=== PATIENT | female | born 1960 | race Caucasian/White ===

== ENCOUNTER 2016-12-18 16:08 | Inpatient (IN) | payer MEDICARE, MEDICAID ==
[2016-12-18 18:17] VITALS: BMI 35.7
[2016-12-18] MEDS ORDERED: Ondansetron ODT 4 MG TAB PO PRN (19:21)
[2016-12-18] MEDS ORDERED: Bisacodyl 10 MG SUPP PR PRN (19:21)
[2016-12-18] MEDS ORDERED: HumaLOG 300 UNITS/3 ML VIAL SC PRN (19:21)
[2016-12-18] MEDS ORDERED: Lacri-Lube Opth Oint 3.5 GM TUBE EA EYE PRN (19:21)
[2016-12-18] MEDS ORDERED: Mag-Al Plus 1200 MG/1200 MG/120 MG/30 ML UDCUP PO PRN (19:21)
[2016-12-18] MEDS ORDERED: Enoxaparin Sodium 30 MG/0.3 ML SYRINGE SC SCH (21:00)
[2016-12-18] MEDS: risperiDONE 0.5 MG TAB PO PRN (21:08)
[2016-12-18] MEDS: clonazePAM 0.5 MG TAB PO PRN (21:08)
[2016-12-18] MEDS: Polyethylene Glycol 3350 17 GM Packet PO SCH (21:09)
[2016-12-18] MEDS: Saccharomyces boulardii 250 MG CAP PO SCH (21:09)
[2016-12-18] MEDS: Melatonin 3 MG TAB PO SCH (21:10)
[2016-12-18] MEDS: HYDROcodone/Acetaminophen 10/325 mg Tablet PO PRN (21:10)
[2016-12-18] MEDS: traZODone HCl 50 MG TAB PO SCH (21:11)
[2016-12-18] MEDS: Ascorbic Acid 500 mg Chewable Tablet PO SCH (21:12)
[2016-12-18] MEDS: Furosemide 20 MG TAB PO SCH (21:12)
[2016-12-18] MEDS: MICONAZOLE NITRATE TOP SCH (21:15)
[2016-12-18] MEDS: Levemir Flexpen 100 UNITS/ML PEN SC SCH (21:16)
[2016-12-18] MEDS: Docusate Sodium 100 MG/10 ML UDCUP PO SCH (22:13)
[2016-12-18 23:52] LABS: Bilirubin Negative (Negative); Clarity Hazy (Clear); Glucose, Urine (Dipstick) Negative (Negative); Leukocyte Small (Negative); Nitrite Negative (Negative); Protein, Urine (Dipstick) 30 mg/dL (Neg-Trace); Specific Gravity, Urine 1.015 (1.005-1.030); Urobilinogen 0.2 mg/dL (0.2-1.0); pH, Urine 5.5 (5.0-9.0)
[2016-12-18 23:53] LABS: Blood, Urine Trace (Negative)
[2016-12-19 00:12] LABS: Bacteria/HPF 1+ HPF (None Seen); Yeast-All Forms 1+ HPF (None Seen)
[2016-12-19 00:13] LABS: Crystals/HPF RARE CA OXALATE HPF (Negative); Hyaline Casts/LPF 0-3 HYALINE CAST LPF (0-3 Hyaline); Other Casts/LPF 0-3 FINELY GRAN LPF (0-3 Hyaline)
[2016-12-19] MEDS: HYDROcodone/Acetaminophen 10/325 mg Tablet PO PRN ×4 (04:49→21:02)
[2016-12-19] MEDS: clonazePAM 0.5 MG TAB PO PRN ×3 (07:30→23:36)
[2016-12-19] MEDS: Ascorbic Acid 500 mg Chewable Tablet PO SCH ×2 (08:41→20:44)
[2016-12-19] MEDS: Saccharomyces boulardii 250 MG CAP PO SCH ×2 (08:41→20:46)
[2016-12-19] MEDS: Ferrous Sulfate 325 MG TAB PO SCH ×2 (08:41→16:07)
[2016-12-19] MEDS: Senokot 8.6 MG TAB PO SCH (08:41)
[2016-12-19] MEDS: Potassium Chloride 10 MEQ TAB PO SCH (08:42)
[2016-12-19] MEDS: Furosemide 20 MG TAB PO SCH ×2 (08:42→20:45)
[2016-12-19] MEDS: Levemir Flexpen 100 UNITS/ML PEN SC SCH ×2 (08:43→20:47)
[2016-12-19] MEDS: Docusate Sodium 100 MG/10 ML UDCUP PO SCH ×2 (08:43→20:48)
[2016-12-19] MEDS: MICONAZOLE NITRATE TOP SCH ×2 (08:58→20:47)
[2016-12-19] MEDS: Polyethylene Glycol 3350 17 GM Packet PO SCH ×2 (09:00→20:43)
[2016-12-19] MEDS ORDERED: Dextrose 5% in Water 1,000 ML IV PRN (16:16)
[2016-12-19] MEDS ORDERED: Dextrose 50% Abboject 50 ML SYRINGE IVP PRN (16:16)
[2016-12-19] MEDS: traZODone HCl 50 MG TAB PO SCH (20:44)
[2016-12-19] MEDS: Melatonin 3 MG TAB PO SCH (20:45)
[2016-12-19] MEDS: risperiDONE 0.5 MG TAB PO PRN (21:02)
[2016-12-19] MEDS: Cyclobenzaprine 10 MG TAB PO PRN (21:02)
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
[2016-12-20] MEDS: HYDROcodone/Acetaminophen 10/325 mg Tablet PO PRN ×4 (02:19→19:52)
[2016-12-20] MEDS: clonazePAM 0.5 MG TAB PO PRN ×3 (08:43→21:41)
[2016-12-20] MEDS: Polyethylene Glycol 3350 17 GM Packet PO SCH ×2 (08:45→21:32)
[2016-12-20] MEDS: MICONAZOLE NITRATE TOP SCH (08:45)
[2016-12-20] MEDS: Saccharomyces boulardii 250 MG CAP PO SCH ×2 (08:48→21:29)
[2016-12-20] MEDS: Furosemide 20 MG TAB PO SCH ×2 (08:48→21:30)
[2016-12-20] MEDS: Senokot 8.6 MG TAB PO SCH (08:48)
[2016-12-20] MEDS: Ferrous Sulfate 325 MG TAB PO SCH ×2 (08:48→17:14)
[2016-12-20] MEDS: Ascorbic Acid 500 mg Chewable Tablet PO SCH ×2 (08:48→21:30)
[2016-12-20] MEDS: Levemir Flexpen 100 UNITS/ML PEN SC SCH ×2 (08:48→21:55)
[2016-12-20] MEDS: Potassium Chloride 10 MEQ TAB PO SCH (08:48)
[2016-12-20] MEDS: Docusate Sodium 100 MG/10 ML UDCUP PO SCH ×2 (08:49→21:40)
[2016-12-20] MEDS: Cyclobenzaprine 10 MG TAB PO PRN (13:22)
[2016-12-20] MEDS: traZODone HCl 50 MG TAB PO SCH (21:28)
[2016-12-20] MEDS: Melatonin 3 MG TAB PO SCH (21:30)
[2016-12-20] MEDS: Nystatin Powder 15 GM BOT TOP SCH (22:01)
[2016-12-21] MEDS: HYDROcodone/Acetaminophen 10/325 mg Tablet PO PRN ×3 (06:04→14:05)
[2016-12-21] MEDS: Ascorbic Acid 500 mg Chewable Tablet PO SCH ×2 (08:08→21:15)
[2016-12-21] MEDS: Furosemide 20 MG TAB PO SCH ×2 (08:08→21:16)
[2016-12-21] MEDS: Ferrous Sulfate 325 MG TAB PO SCH ×2 (08:08→17:24)
[2016-12-21] MEDS: Levemir Flexpen 100 UNITS/ML PEN SC SCH ×2 (08:10→21:11)
[2016-12-21] MEDS: Nystatin Powder 15 GM BOT TOP SCH ×2 (08:11→21:29)
[2016-12-21] MEDS: Polyethylene Glycol 3350 17 GM Packet PO SCH ×2 (08:11→21:17)
[2016-12-21] MEDS: Saccharomyces boulardii 250 MG CAP PO SCH ×2 (08:12→21:16)
[2016-12-21] MEDS: Potassium Chloride 10 MEQ TAB PO SCH (08:12)
[2016-12-21] MEDS: clonazePAM 0.5 MG TAB PO PRN ×3 (08:12→21:26)
[2016-12-21] MEDS: Senokot 8.6 MG TAB PO SCH (08:12)
[2016-12-21] MEDS: Docusate Sodium 100 MG/10 ML UDCUP PO SCH ×2 (08:18→21:30)
[2016-12-21] MEDS: Ibuprofen 100 MG/5 ML UDCUP PO PRN (19:27)
[2016-12-21] MEDS: Cyclobenzaprine 10 MG TAB PO PRN (19:28)
[2016-12-21] MEDS: traZODone HCl 50 MG TAB PO SCH (21:14)
[2016-12-21] MEDS: Melatonin 3 MG TAB PO SCH (21:16)
[2016-12-22] MEDS: HYDROcodone/Acetaminophen 10/325 mg Tablet PO PRN ×3 (00:29→20:09)
[2016-12-22] MEDS: Polyethylene Glycol 3350 17 GM Packet PO SCH ×2 (09:22→21:58)
[2016-12-22] MEDS: Ascorbic Acid 500 mg Chewable Tablet PO SCH ×2 (09:23→21:31)
[2016-12-22] MEDS: Saccharomyces boulardii 250 MG CAP PO SCH ×2 (09:23→21:29)
[2016-12-22] MEDS: Senokot 8.6 MG TAB PO SCH (09:23)
[2016-12-22] MEDS: Furosemide 20 MG TAB PO SCH ×2 (09:23→21:32)
[2016-12-22] MEDS: Ferrous Sulfate 325 MG TAB PO SCH ×2 (09:23→17:27)
[2016-12-22] MEDS: Cyclobenzaprine 10 MG TAB PO PRN ×2 (09:23→18:24)
[2016-12-22] MEDS: Docusate Sodium 100 MG/10 ML UDCUP PO SCH ×2 (09:24→21:31)
[2016-12-22] MEDS: Potassium Chloride 10 MEQ TAB PO SCH (09:24)
[2016-12-22] MEDS: Levemir Flexpen 100 UNITS/ML PEN SC SCH ×2 (09:25→21:39)
[2016-12-22] MEDS: Nystatin Powder 15 GM BOT TOP SCH ×2 (09:26→21:39)
[2016-12-22] MEDS: Ibuprofen 100 MG/5 ML UDCUP PO PRN ×2 (09:26→18:25)
[2016-12-22] MEDS: clonazePAM 0.5 MG TAB PO PRN ×2 (09:57→21:44)
[2016-12-22] MEDS: hydrOXYzine 25 MG TAB PO PRN (20:11)
[2016-12-22] MEDS: traZODone HCl 50 MG TAB PO SCH (21:30)
[2016-12-22] MEDS: Melatonin 3 MG TAB PO SCH (21:31)
[2016-12-23] MEDS: Ibuprofen 100 MG/5 ML UDCUP PO PRN ×2 (05:32→13:34)
[2016-12-23] MEDS: Cyclobenzaprine 10 MG TAB PO PRN ×3 (05:33→21:08)
[2016-12-23] MEDS: Ascorbic Acid 500 mg Chewable Tablet PO SCH ×2 (09:23→21:07)
[2016-12-23] MEDS: Polyethylene Glycol 3350 17 GM Packet PO SCH ×2 (09:23→21:11)
[2016-12-23] MEDS: Potassium Chloride 10 MEQ TAB PO SCH (09:23)
[2016-12-23] MEDS: Docusate Sodium 100 MG/10 ML UDCUP PO SCH ×2 (09:24→21:11)
[2016-12-23] MEDS: Senokot 8.6 MG TAB PO SCH (09:24)
[2016-12-23] MEDS: Furosemide 20 MG TAB PO SCH ×2 (09:24→21:09)
[2016-12-23] MEDS: Ferrous Sulfate 325 MG TAB PO SCH ×2 (09:24→17:27)
[2016-12-23] MEDS: Saccharomyces boulardii 250 MG CAP PO SCH ×2 (09:24→21:07)
[2016-12-23] MEDS: Levemir Flexpen 100 UNITS/ML PEN SC SCH ×2 (09:26→21:12)
[2016-12-23] MEDS: Nystatin Powder 15 GM BOT TOP SCH ×2 (09:27→21:11)
[2016-12-23] MEDS: clonazePAM 0.5 MG TAB PO PRN ×2 (10:04→21:07)
[2016-12-23] MEDS: HYDROcodone/Acetaminophen 10/325 mg Tablet PO PRN ×2 (12:45→21:08)
[2016-12-23] MEDS: Melatonin 3 MG TAB PO SCH (21:07)
[2016-12-23] MEDS: traZODone HCl 50 MG TAB PO SCH (21:09)
[2016-12-24] MEDS: clonazePAM 0.5 MG TAB PO PRN ×3 (09:05→21:35)
[2016-12-24] MEDS: Cyclobenzaprine 10 MG TAB PO PRN ×2 (09:06→21:35)
[2016-12-24] MEDS: HYDROcodone/Acetaminophen 10/325 mg Tablet PO PRN ×3 (09:06→21:35)
[2016-12-24] MEDS: Ascorbic Acid 500 mg Chewable Tablet PO SCH ×2 (09:08→17:14)
[2016-12-24] MEDS: Polyethylene Glycol 3350 17 GM Packet PO SCH ×2 (09:08→21:24)
[2016-12-24] MEDS: Furosemide 20 MG TAB PO SCH ×2 (09:08→21:23)
[2016-12-24] MEDS: Potassium Chloride 10 MEQ TAB PO SCH (09:08)
[2016-12-24] MEDS: Ferrous Sulfate 325 MG TAB PO SCH ×2 (09:08→17:13)
[2016-12-24] MEDS: Saccharomyces boulardii 250 MG CAP PO SCH ×2 (09:08→21:22)
[2016-12-24] MEDS: Docusate Sodium 100 MG/10 ML UDCUP PO SCH ×2 (09:09→21:23)
[2016-12-24] MEDS: Nystatin Powder 15 GM BOT TOP SCH ×2 (09:09→21:31)
[2016-12-24] MEDS: Levemir Flexpen 100 UNITS/ML PEN SC SCH ×2 (09:09→21:39)
[2016-12-24] MEDS: Senokot 8.6 MG TAB PO SCH (09:10)
[2016-12-24] MEDS: traZODone HCl 50 MG TAB PO SCH (21:22)
[2016-12-24] MEDS: Melatonin 3 MG TAB PO SCH (21:23)
[2016-12-24] MEDS: risperiDONE 0.5 MG TAB PO PRN (21:35)
[2016-12-24] MEDS: Ibuprofen 100 MG/5 ML UDCUP PO PRN (22:59)
[2016-12-25] MEDS: HYDROcodone/Acetaminophen 10/325 mg Tablet PO PRN ×4 (03:30→23:31)
[2016-12-25] MEDS: Ferrous Sulfate 325 MG TAB PO SCH ×2 (08:52→17:19)
[2016-12-25] MEDS: Furosemide 20 MG TAB PO SCH ×2 (08:52→20:20)
[2016-12-25] MEDS: Potassium Chloride 10 MEQ TAB PO SCH (08:52)
[2016-12-25] MEDS: Ascorbic Acid 500 mg Chewable Tablet PO SCH ×2 (08:52→17:18)
[2016-12-25] MEDS: Senokot 8.6 MG TAB PO SCH (08:52)
[2016-12-25] MEDS: Saccharomyces boulardii 250 MG CAP PO SCH ×2 (08:52→20:21)
[2016-12-25] MEDS: Polyethylene Glycol 3350 17 GM Packet PO SCH ×2 (08:53→20:21)
[2016-12-25] MEDS: Nystatin Powder 15 GM BOT TOP SCH ×2 (08:53→20:21)
[2016-12-25] MEDS: Levemir Flexpen 100 UNITS/ML PEN SC SCH ×2 (08:54→20:20)
[2016-12-25] MEDS: Docusate Sodium 100 MG/10 ML UDCUP PO SCH ×2 (08:54→20:19)
[2016-12-25] MEDS: Cyclobenzaprine 10 MG TAB PO PRN ×2 (09:25→20:22)
[2016-12-25] MEDS: clonazePAM 0.5 MG TAB PO PRN ×3 (09:25→20:21)
[2016-12-25] MEDS: Melatonin 3 MG TAB PO SCH (20:21)
[2016-12-25] MEDS: traZODone HCl 50 MG TAB PO SCH (20:21)
[2016-12-25] MEDS: risperiDONE 0.5 MG TAB PO PRN (20:22)
[2016-12-25] MEDS: Ibuprofen 100 MG/5 ML UDCUP PO PRN (23:30)
[2016-12-26] MEDS: Furosemide 20 MG TAB PO SCH ×2 (08:59→21:10)
[2016-12-26] MEDS: Saccharomyces boulardii 250 MG CAP PO SCH ×2 (08:59→21:10)
[2016-12-26] MEDS: Ascorbic Acid 500 mg Chewable Tablet PO SCH ×2 (08:59→17:55)
[2016-12-26] MEDS: Potassium Chloride 10 MEQ TAB PO SCH (08:59)
[2016-12-26] MEDS: Senokot 8.6 MG TAB PO SCH (08:59)
[2016-12-26] MEDS: Ferrous Sulfate 325 MG TAB PO SCH ×2 (09:00→17:55)
[2016-12-26] MEDS: HYDROcodone/Acetaminophen 10/325 mg Tablet PO PRN ×3 (09:00→17:56)
[2016-12-26] MEDS: Nystatin Powder 15 GM BOT TOP SCH ×2 (09:01→21:11)
[2016-12-26] MEDS: Docusate Sodium 100 MG/10 ML UDCUP PO SCH ×2 (09:02→21:13)
[2016-12-26] MEDS: Levemir Flexpen 100 UNITS/ML PEN SC SCH ×2 (09:05→21:11)
[2016-12-26] MEDS: Polyethylene Glycol 3350 17 GM Packet PO SCH ×2 (09:05→21:11)
[2016-12-26] MEDS: Melatonin 3 MG TAB PO SCH (21:10)
[2016-12-26] MEDS: traZODone HCl 50 MG TAB PO SCH (21:10)
[2016-12-27] MEDS: HYDROcodone/Acetaminophen 10/325 mg Tablet PO PRN ×3 (00:44→21:22)
[2016-12-27] MEDS: Cyclobenzaprine 10 MG TAB PO PRN ×2 (01:52→17:31)
[2016-12-27] MEDS: clonazePAM 0.5 MG TAB PO PRN ×3 (01:52→21:03)
[2016-12-27] MEDS: Ascorbic Acid 500 mg Chewable Tablet PO SCH ×2 (09:23→17:30)
[2016-12-27] MEDS: Ferrous Sulfate 325 MG TAB PO SCH ×2 (09:23→17:31)
[2016-12-27] MEDS: Potassium Chloride 10 MEQ TAB PO SCH (09:24)
[2016-12-27] MEDS: Furosemide 20 MG TAB PO SCH ×2 (09:24→21:01)
[2016-12-27] MEDS: Senokot 8.6 MG TAB PO SCH (09:24)
[2016-12-27] MEDS: Polyethylene Glycol 3350 17 GM Packet PO SCH ×2 (09:24→20:59)
[2016-12-27] MEDS: Saccharomyces boulardii 250 MG CAP PO SCH ×2 (09:24→20:59)
[2016-12-27] MEDS: Levemir Flexpen 100 UNITS/ML PEN SC SCH ×2 (09:25→21:01)
[2016-12-27] MEDS: Docusate Sodium 100 MG/10 ML UDCUP PO SCH ×2 (09:26→21:00)
[2016-12-27] MEDS: Nystatin Powder 15 GM BOT TOP SCH ×2 (09:27→21:04)
[2016-12-27] MEDS: Ibuprofen 100 MG/5 ML UDCUP PO PRN (09:32)
[2016-12-27] MEDS ORDERED: Ibuprofen 400 MG TAB PO PRN (16:05)
[2016-12-27] MEDS: Melatonin 3 MG TAB PO SCH (21:01)
[2016-12-27] MEDS: traZODone HCl 50 MG TAB PO SCH (21:01)
[2016-12-27] MEDS: risperiDONE 0.5 MG TAB PO PRN (21:27)
[2016-12-28] MEDS: HYDROcodone/Acetaminophen 10/325 mg Tablet PO PRN ×3 (04:29→21:16)
[2016-12-28] MEDS: Cyclobenzaprine 10 MG TAB PO PRN ×2 (07:39→23:53)
[2016-12-28] MEDS: Ferrous Sulfate 325 MG TAB PO SCH ×2 (07:39→17:46)
[2016-12-28] MEDS: clonazePAM 0.5 MG TAB PO PRN ×2 (07:39→17:46)
[2016-12-28] MEDS: Ascorbic Acid 500 mg Chewable Tablet PO SCH ×2 (07:40→17:46)
[2016-12-28] MEDS: Senokot 8.6 MG TAB PO SCH (08:59)
[2016-12-28] MEDS: Furosemide 20 MG TAB PO SCH ×2 (09:00→21:16)
[2016-12-28] MEDS: Saccharomyces boulardii 250 MG CAP PO SCH ×2 (09:00→21:15)
[2016-12-28] MEDS: Potassium Chloride 10 MEQ TAB PO SCH (09:00)
[2016-12-28] MEDS: Docusate Sodium 100 MG/10 ML UDCUP PO SCH ×2 (09:00→21:14)
[2016-12-28] MEDS: Levemir Flexpen 100 UNITS/ML PEN SC SCH ×2 (09:11→21:35)
[2016-12-28] MEDS: Nystatin Powder 15 GM BOT TOP SCH ×2 (09:12→21:33)
[2016-12-28] MEDS: Polyethylene Glycol 3350 17 GM Packet PO SCH ×2 (09:12→21:15)
[2016-12-28] MEDS ORDERED: Cyclobenzaprine 10 MG TAB PO SCH (12:15)
[2016-12-28] MEDS: traZODone HCl 50 MG TAB PO SCH (21:15)
[2016-12-28] MEDS: Melatonin 3 MG TAB PO SCH (21:16)
[2016-12-28] MEDS: risperiDONE 0.5 MG TAB PO PRN (21:16)
[2016-12-29] MEDS: HYDROcodone/Acetaminophen 10/325 mg Tablet PO PRN ×5 (05:01→23:58)
[2016-12-29] MEDS: Nystatin Powder 15 GM BOT TOP SCH ×2 (09:02→21:47)
[2016-12-29] MEDS: Ascorbic Acid 500 mg Chewable Tablet PO SCH ×2 (09:02→16:53)
[2016-12-29] MEDS: Polyethylene Glycol 3350 17 GM Packet PO SCH ×2 (09:02→19:49)
[2016-12-29] MEDS: Furosemide 20 MG TAB PO SCH ×2 (09:02→19:50)
[2016-12-29] MEDS: Saccharomyces boulardii 250 MG CAP PO SCH ×2 (09:02→19:49)
[2016-12-29] MEDS: Potassium Chloride 10 MEQ TAB PO SCH (09:02)
[2016-12-29] MEDS: Levemir Flexpen 100 UNITS/ML PEN SC SCH ×2 (09:03→21:47)
[2016-12-29] MEDS: Senokot 8.6 MG TAB PO SCH (09:03)
[2016-12-29] MEDS: Ferrous Sulfate 325 MG TAB PO SCH ×2 (09:03→16:53)
[2016-12-29] MEDS: Docusate Sodium 100 MG/10 ML UDCUP PO SCH ×2 (09:03→19:50)
[2016-12-29] MEDS: clonazePAM 0.5 MG TAB PO PRN ×3 (10:58→21:46)
[2016-12-29] MEDS: HumaLOG 300 UNITS/3 ML VIAL SC PRN (11:55)
[2016-12-29] MEDS: traZODone HCl 50 MG TAB PO SCH (19:49)
[2016-12-29] MEDS: Melatonin 3 MG TAB PO SCH (19:50)
[2016-12-29] MEDS: Cyclobenzaprine 10 MG TAB PO PRN (19:51)
[2016-12-29] MEDS: risperiDONE 0.5 MG TAB PO PRN (19:54)
[2016-12-30] MEDS: HYDROcodone/Acetaminophen 10/325 mg Tablet PO PRN ×4 (04:20→20:23)
[2016-12-30] MEDS: clonazePAM 0.5 MG TAB PO PRN ×3 (08:31→20:22)
[2016-12-30] MEDS: Furosemide 20 MG TAB PO SCH ×2 (08:33→20:25)
[2016-12-30] MEDS: Potassium Chloride 10 MEQ TAB PO SCH (08:33)
[2016-12-30] MEDS: Ferrous Sulfate 325 MG TAB PO SCH ×2 (08:33→17:06)
[2016-12-30] MEDS: Senokot 8.6 MG TAB PO SCH (08:33)
[2016-12-30] MEDS: Ascorbic Acid 500 mg Chewable Tablet PO SCH ×2 (08:33→17:06)
[2016-12-30] MEDS: Saccharomyces boulardii 250 MG CAP PO SCH ×2 (08:33→20:24)
[2016-12-30] MEDS: Docusate Sodium 100 MG/10 ML UDCUP PO SCH ×2 (08:34→20:39)
[2016-12-30] MEDS: Levemir Flexpen 100 UNITS/ML PEN SC SCH ×2 (08:34→21:32)
[2016-12-30] MEDS: Nystatin Powder 15 GM BOT TOP SCH ×2 (08:35→20:40)
[2016-12-30] MEDS: Polyethylene Glycol 3350 17 GM Packet PO SCH ×2 (08:36→20:26)
[2016-12-30] MEDS: hydrOXYzine 25 MG TAB PO PRN (11:36)
[2016-12-30] MEDS: Cyclobenzaprine 10 MG TAB PO PRN (20:23)
[2016-12-30] MEDS: traZODone HCl 50 MG TAB PO SCH (20:24)
[2016-12-30] MEDS: Melatonin 3 MG TAB PO SCH (20:25)
[2016-12-30] MEDS: risperiDONE 0.5 MG TAB PO PRN (20:30)
[2016-12-31] MEDS: HYDROcodone/Acetaminophen 10/325 mg Tablet PO PRN ×4 (01:44→15:03)
[2016-12-31] MEDS: Cyclobenzaprine 10 MG TAB PO PRN (04:36)
[2016-12-31] MEDS: Polyethylene Glycol 3350 17 GM Packet PO SCH (09:01)
[2016-12-31] MEDS: Saccharomyces boulardii 250 MG CAP PO SCH (09:02)
[2016-12-31] MEDS: Potassium Chloride 10 MEQ TAB PO SCH (09:02)
[2016-12-31] MEDS: Senokot 8.6 MG TAB PO SCH (09:03)
[2016-12-31] MEDS: Ascorbic Acid 500 mg Chewable Tablet PO SCH (09:03)
[2016-12-31] MEDS: Furosemide 20 MG TAB PO SCH (09:03)
[2016-12-31] MEDS: Ferrous Sulfate 325 MG TAB PO SCH (09:03)
[2016-12-31] MEDS: Levemir Flexpen 100 UNITS/ML PEN SC SCH (09:06)
[2016-12-31] MEDS: Nystatin Powder 15 GM BOT TOP SCH (09:10)
[2016-12-31] MEDS: hydrOXYzine 25 MG TAB PO PRN (10:12)
[2016-12-31] MEDS: clonazePAM 0.5 MG TAB PO PRN ×2 (10:12→15:03)
[2016-12-31 10:46] VITALS: TEMP 97
[2016-12-31] MEDS: HumaLOG 300 UNITS/3 ML VIAL SC PRN (11:55)
[2016-12-31 13:11] VITALS: BP 131/78
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
== END 2016-12-31 15:29 | disposition home health service (06) | DRG 560 ==
LOC: MADMS 17:35
PROVIDERS: ADMIT Family Medicine; ATTEND Family Medicine
DX: S22.089D Unspecified fracture of T11-T12 vertebra, subsequent encounter for fracture with routine healing (principal); D62 Acute posthemorrhagic anemia; G82.20 Paraplegia, unspecified; I10 Essential (primary) hypertension; E11.9 Type 2 diabetes mellitus without complications; R26.9 Unspecified abnormalities of gait and mobility; K21.9 Gastro-esophageal reflux disease without esophagitis; F41.9 Anxiety disorder, unspecified; F32.9 Major depressive disorder, single episode, unspecified; F31.9 Bipolar disorder, unspecified; E78.5 Hyperlipidemia, unspecified; V49.9XXD Car occupant (driver) (passenger) injured in unspecified traffic accident, subsequent encounter; Z66 Do not resuscitate
CPT/HCPCS: 36416; 81003; 81015; 87086; G8978-GP-CN; G8979-GP-CK; J1815; J7620; Q0162

== ENCOUNTER 2017-02-26 14:48 | Outpatient (CLI) | payer MEDICARE, MEDICAID ==
[2017-02-26 15:33] LABS: Bilirubin Negative (Negative); Blood, Urine Trace (Negative); Clarity Cloudy (Clear); Glucose, Urine (Dipstick) Negative (Negative); Leukocyte Moderate (Negative); Nitrite Negative (Negative); Urobilinogen 0.2 mg/dL (0.2-1.0)
[2017-02-26 15:34] LABS: Bacteria/HPF 4+ HPF (None Seen); Squamous Epithelial None Seen HPF (0-3)
[2017-02-26 15:45] LABS: Protein, Urine (Dipstick) Negative (Neg-Trace)
== END 2017-02-26 14:49 | disposition home or self-care (01) ==
LOC: MADLAB 14:48
PROVIDERS: ATTEND General Practice
DX: N31.9 Neuromuscular dysfunction of bladder, unspecified (principal)
CPT/HCPCS: 36415; 81001; 87077; 87086; 87186

== ENCOUNTER 2017-07-02 18:21 | Inpatient (IN) | payer MEDICARE, MEDICAID ==
[2017-07-02] MEDS ORDERED: Baclofen 10 MG TAB PO PRN (21:02)
[2017-07-02] MEDS ORDERED: Bisacodyl 5 MG TAB PO PRN (21:05)
[2017-07-02] MEDS ORDERED: Bisacodyl 10 MG SUPP PR PRN (21:05)
[2017-07-02] MEDS ORDERED: Lacri-Lube Opth Oint 3.5 GM TUBE EA EYE PRN (21:09)
[2017-07-02] MEDS ORDERED: Melatonin 3 MG TAB PO PRN (21:09)
[2017-07-02] MEDS ORDERED: Dextrose 5% in Water 1,000 ML IV PRN (21:11)
[2017-07-02] MEDS ORDERED: Dextrose 50% Abboject 50 ML SYRINGE IVP PRN (21:12)
[2017-07-02] MEDS ORDERED: Bisacodyl 10 MG SUPP PR SCH (22:00)
[2017-07-02] MEDS: Senokot 8.6 MG TAB PO SCH (22:15)
[2017-07-02] MEDS: Polyethylene Glycol 3350 17 GM Packet PO SCH (22:15)
[2017-07-02] MEDS: Albuterol Sulfate 2.5 mg/3 ml Neb NEB SCH (22:16)
[2017-07-02] MEDS: Levemir Flexpen 100 UNITS/ML PEN SC SCH (22:19)
[2017-07-02] MEDS: Vancomycin HCl 1 GM in Sodium Chloride 0.9% 250 ML 250 ML IVPB SCH (23:33)
[2017-07-02] MEDS: Acetaminophen/Codeine 30-300mg Tablet PO PRN (23:34)
[2017-07-03] MEDS: clonazePAM 0.5 MG TAB PO PRN ×2 (01:30→11:10)
[2017-07-03] MEDS: fentaNYL 50 mcg/hour Patch TD SCH (01:30)
[2017-07-03 05:29] LABS: #Basophils 0.1 thou/uL (0.0-0.2); #Eosinphils 0.4 thou/uL (0.0-0.7); #Lymphocytes 2.3 thou/uL (1.20-3.40); #Monocytes 0.6 thou/uL (0.11-0.59); #Neutrophils 4.8 thou/uL (1.40-6.50); %Basophils 0.9 % (0.0-1.0); %Eosinophils 4.8 % (0.0-10.0); %Lymphocytes 27.8 % (21.0-51.0); %Monocytes 7.8 % (0.0-10.0); %Neutrophils 58.7 % (42.0-75.0); Hemoglobin 8.8 g/dL (12.0-16.0); Mean Corpuscular Hemoglobin 29.3 pg (27.0-31.0); Mean Corpuscular Volume 91.5 fl (81.0-99.0); Mean Platelet Volume 5.7 fL (7.4-10.4); Platelet Count 420 thou/uL (130-400); RBC Distribution Width 15.9 % (11.5-14.5); Red Blood Cell (RBC) Count 3.02 mill/uL (4.20-5.40); White Blood Cell (WBC) Count 8.2 thou/uL (4.8-10.8)
[2017-07-03 05:40] LABS: Anion Gap 12 mmol/L (10-20); BUN (Urea Nitrogen) 8 mg/dL (9.8-20.1); Calc. Creatinine Clearance 169 mL/min (70-130); Calcium 10.3 mg/dL (7.8-10.44); Carbon Dioxide 35 mmol/L (22-29); Estimated GFR-MDRD Greater than 90; Glucose 133 mg/dL (70-105)
[2017-07-03 05:44] LABS: Chloride 98 mmol/L (98-107); Potassium 4.2 mmol/L (3.5-5.1); Sodium 141 mmol/L (136-145)
[2017-07-03] MEDS ORDERED: FLU VACC QS2017-18 36 mo. & older 0.5 ML SYRINGE IM ONE (09:00)
[2017-07-03] MEDS: Senokot 8.6 MG TAB PO SCH ×2 (09:09→20:56)
[2017-07-03] MEDS: Enoxaparin Sodium 40 MG/0.4 ML SYRINGE SC SCH (09:09)
[2017-07-03] MEDS: Polyethylene Glycol 3350 17 GM Packet PO SCH ×3 (09:09→21:00)
[2017-07-03] MEDS: Potassium Chloride 10 MEQ TAB PO SCH (09:09)
[2017-07-03] MEDS: Furosemide 20 MG TAB PO SCH (09:09)
[2017-07-03] MEDS: Ferrous Sulfate 325 MG TAB PO SCH ×2 (09:09→17:11)
[2017-07-03] MEDS: Albuterol Sulfate 2.5 mg/3 ml Neb NEB SCH ×2 (09:10→20:53)
[2017-07-03] MEDS: Acetaminophen/Codeine 30-300mg Tablet PO PRN ×2 (11:09→19:19)
[2017-07-03] MEDS: Vancomycin HCl 1 GM in Sodium Chloride 0.9% 250 ML 250 ML IVPB SCH (11:49)
[2017-07-03 11:52] LABS: Vancomycin, Trough 15.6 ug/mL
[2017-07-03] MEDS ORDERED: Triamcinolone 0.1% Cream 15 GM TUBE TOP PRN (13:18)
[2017-07-03] MEDS ORDERED: Fleet Enema 133 ML BOT PR PRN (13:33)
[2017-07-03] MEDS: tiZANidine HCl 4 MG TAB PO SCH ×2 (13:48→19:18)
[2017-07-03] MEDS: Baclofen 10 MG TAB PO SCH ×2 (13:49→19:17)
[2017-07-03] MEDS ORDERED: tiZANidine HCl 4 MG TAB PO SCH (18:00)
[2017-07-03] MEDS ORDERED: Acetaminophen/Codeine 30-300mg Tablet PO PRN (18:51)
[2017-07-03] MEDS: Bisacodyl 10 MG SUPP PR SCH (20:54)
[2017-07-03] MEDS: Levemir Flexpen 100 UNITS/ML PEN SC SCH (20:55)
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
[2017-07-04] MEDS: Vancomycin HCl 1 GM in Sodium Chloride 0.9% 250 ML 250 ML IVPB SCH ×3 (00:04→23:18)
[2017-07-04] MEDS: Baclofen 10 MG TAB PO SCH ×4 (01:32→19:39)
[2017-07-04] MEDS: Acetaminophen/Codeine 30-300mg Tablet PO PRN ×4 (01:33→23:18)
[2017-07-04] MEDS: tiZANidine HCl 4 MG TAB PO SCH ×4 (01:33→19:39)
[2017-07-04] MEDS ORDERED: Bisacodyl 10 MG SUPP PR PRN (06:37)
[2017-07-04] MEDS: Furosemide 20 MG TAB PO SCH (09:13)
[2017-07-04] MEDS: Senokot 8.6 MG TAB PO SCH ×2 (09:15→20:02)
[2017-07-04] MEDS: Albuterol Sulfate 2.5 mg/3 ml Neb NEB SCH ×2 (09:16→19:40)
[2017-07-04] MEDS: Potassium Chloride 10 MEQ TAB PO SCH (09:16)
[2017-07-04] MEDS: Ferrous Sulfate 325 MG TAB PO SCH ×2 (09:16→16:52)
[2017-07-04] MEDS: Enoxaparin Sodium 40 MG/0.4 ML SYRINGE SC SCH (09:17)
[2017-07-04] MEDS: Polyethylene Glycol 3350 17 GM Packet PO SCH ×2 (09:18→20:00)
[2017-07-04] MEDS: Ondansetron ODT 4 MG TAB PO PRN (14:13)
[2017-07-04] MEDS: HumaLOG 300 UNITS/3 ML VIAL SC PRN (18:00)
[2017-07-04] MEDS: clonazePAM 0.5 MG TAB PO PRN (18:08)
[2017-07-04] MEDS: Levemir Flexpen 100 UNITS/ML PEN SC SCH (20:01)
[2017-07-04] MEDS: Bisacodyl 10 MG SUPP PR SCH (20:01)
[2017-07-05] MEDS: tiZANidine HCl 4 MG TAB PO SCH ×5 (01:26→20:25)
[2017-07-05] MEDS: Baclofen 10 MG TAB PO SCH ×5 (01:26→20:25)
[2017-07-05] MEDS: Acetaminophen/Codeine 30-300mg Tablet PO PRN ×3 (05:29→20:21)
[2017-07-05] MEDS: Ferrous Sulfate 325 MG TAB PO SCH ×2 (08:53→18:08)
[2017-07-05] MEDS: Potassium Chloride 10 MEQ TAB PO SCH (08:53)
[2017-07-05] MEDS: Enoxaparin Sodium 40 MG/0.4 ML SYRINGE SC SCH (08:54)
[2017-07-05] MEDS: Furosemide 20 MG TAB PO SCH (08:54)
[2017-07-05] MEDS: Senokot 8.6 MG TAB PO SCH ×2 (08:54→20:25)
[2017-07-05] MEDS: Albuterol Sulfate 2.5 mg/3 ml Neb NEB SCH ×2 (08:54→20:25)
[2017-07-05] MEDS: Polyethylene Glycol 3350 17 GM Packet PO SCH ×2 (08:55→20:23)
[2017-07-05] MEDS: Vancomycin HCl 1 GM in Sodium Chloride 0.9% 250 ML 250 ML IVPB SCH ×2 (11:51→23:01)
[2017-07-05] MEDS: clonazePAM 0.5 MG TAB PO PRN (20:20)
[2017-07-05] MEDS: traZODone HCl 50 MG TAB PO PRN (20:22)
[2017-07-05] MEDS: Bisacodyl 10 MG SUPP PR SCH (20:22)
[2017-07-05] MEDS: Levemir Flexpen 100 UNITS/ML PEN SC SCH (20:23)
[2017-07-06] MEDS: Baclofen 10 MG TAB PO SCH ×4 (01:00→20:13)
[2017-07-06] MEDS: tiZANidine HCl 4 MG TAB PO SCH ×4 (01:00→20:04)
[2017-07-06] MEDS: fentaNYL 50 mcg/hour Patch TD SCH (01:01)
[2017-07-06] MEDS: risperiDONE 0.5 MG TAB PO PRN (01:20)
[2017-07-06] MEDS: Acetaminophen/Codeine 30-300mg Tablet PO PRN ×3 (05:11→20:05)
[2017-07-06] MEDS: clonazePAM 0.5 MG TAB PO PRN ×2 (05:46→22:21)
[2017-07-06] MEDS: Ferrous Sulfate 325 MG TAB PO SCH ×2 (07:44→17:35)
[2017-07-06] MEDS: Potassium Chloride 10 MEQ TAB PO SCH (07:44)
[2017-07-06] MEDS: Fluticasone Propionate Nasal Spray 16 gm Bottle NASAL PRN (09:42)
[2017-07-06] MEDS: Enoxaparin Sodium 40 MG/0.4 ML SYRINGE SC SCH (09:43)
[2017-07-06] MEDS: Senokot 8.6 MG TAB PO SCH ×2 (09:44→20:05)
[2017-07-06] MEDS: Furosemide 20 MG TAB PO SCH (09:44)
[2017-07-06] MEDS: Polyethylene Glycol 3350 17 GM Packet PO SCH ×2 (09:44→20:07)
[2017-07-06] MEDS: Albuterol Sulfate 2.5 mg/3 ml Neb NEB SCH ×2 (09:44→20:02)
[2017-07-06] MEDS: Vancomycin HCl 1 GM in Sodium Chloride 0.9% 250 ML 250 ML IVPB SCH ×2 (12:14→23:44)
[2017-07-06] MEDS: traZODone HCl 50 MG TAB PO PRN (20:06)
[2017-07-06] MEDS: Bisacodyl 10 MG SUPP PR SCH (20:07)
[2017-07-06] MEDS: Levemir Flexpen 100 UNITS/ML PEN SC SCH (20:13)
[2017-07-07] MEDS: risperiDONE 0.5 MG TAB PO PRN ×2 (00:34→13:41)
[2017-07-07] MEDS: tiZANidine HCl 4 MG TAB PO SCH ×4 (01:45→20:02)
[2017-07-07] MEDS: Acetaminophen/Codeine 30-300mg Tablet PO PRN ×4 (01:45→21:10)
[2017-07-07] MEDS: Baclofen 10 MG TAB PO SCH ×4 (01:46→20:01)
[2017-07-07] MEDS: clonazePAM 0.5 MG TAB PO PRN ×3 (05:13→21:10)
[2017-07-07] MEDS: Potassium Chloride 10 MEQ TAB PO SCH (07:45)
[2017-07-07] MEDS: Ferrous Sulfate 325 MG TAB PO SCH ×2 (07:45→17:17)
[2017-07-07] MEDS: Senokot 8.6 MG TAB PO SCH ×2 (09:25→20:03)
[2017-07-07] MEDS: Polyethylene Glycol 3350 17 GM Packet PO SCH ×2 (09:25→20:02)
[2017-07-07] MEDS: Furosemide 20 MG TAB PO SCH (09:25)
[2017-07-07] MEDS: Albuterol Sulfate 2.5 mg/3 ml Neb NEB SCH ×2 (09:25→20:03)
[2017-07-07] MEDS: Enoxaparin Sodium 40 MG/0.4 ML SYRINGE SC SCH (09:26)
[2017-07-07] MEDS: Vancomycin HCl 1 GM in Sodium Chloride 0.9% 250 ML 250 ML IVPB SCH ×2 (11:47→23:08)
[2017-07-07] MEDS ORDERED: Acetaminophen/Codeine 30-300mg Tablet ONE ×2 (14:55→21:06)
[2017-07-07] MEDS: traZODone HCl 50 MG TAB PO PRN (20:02)
[2017-07-07] MEDS: Levemir Flexpen 100 UNITS/ML PEN SC SCH (20:03)
[2017-07-07] MEDS: Bisacodyl 10 MG SUPP PR SCH (20:06)
[2017-07-08] MEDS: tiZANidine HCl 4 MG TAB PO SCH ×4 (03:14→20:13)
[2017-07-08] MEDS: Baclofen 10 MG TAB PO SCH ×4 (03:14→20:13)
[2017-07-08] MEDS ORDERED: Acetaminophen/Codeine 30-300mg Tablet ONE ×2 (03:19→03:20)
[2017-07-08] MEDS: Acetaminophen/Codeine 30-300mg Tablet PO PRN ×3 (03:23→21:09)
[2017-07-08] MEDS: clonazePAM 0.5 MG TAB PO PRN ×2 (06:24→21:09)
[2017-07-08] MEDS: HumaLOG 300 UNITS/3 ML VIAL SC PRN ×3 (09:29→17:07)
[2017-07-08] MEDS: Albuterol Sulfate 2.5 mg/3 ml Neb NEB SCH ×2 (09:30→20:18)
[2017-07-08] MEDS: Furosemide 20 MG TAB PO SCH (09:30)
[2017-07-08] MEDS: Potassium Chloride 10 MEQ TAB PO SCH (09:30)
[2017-07-08] MEDS: Ferrous Sulfate 325 MG TAB PO SCH ×2 (09:30→16:58)
[2017-07-08] MEDS: Senokot 8.6 MG TAB PO SCH ×2 (09:30→20:13)
[2017-07-08] MEDS: Polyethylene Glycol 3350 17 GM Packet PO SCH ×2 (09:31→20:12)
[2017-07-08] MEDS: Enoxaparin Sodium 40 MG/0.4 ML SYRINGE SC SCH (09:31)
[2017-07-08] MEDS: Vancomycin HCl 1 GM in Sodium Chloride 0.9% 250 ML 250 ML IVPB SCH ×2 (11:45→23:44)
[2017-07-08] MEDS: Ondansetron ODT 4 MG TAB PO PRN (12:02)
[2017-07-08] MEDS: Levemir Flexpen 100 UNITS/ML PEN SC SCH (20:12)
[2017-07-08] MEDS: Bisacodyl 10 MG SUPP PR SCH (20:14)
[2017-07-08] MEDS: traZODone HCl 50 MG TAB PO PRN (21:09)
[2017-07-09] MEDS: fentaNYL 50 mcg/hour Patch TD SCH (00:40)
[2017-07-09] MEDS: Baclofen 10 MG TAB PO SCH ×4 (01:15→20:00)
[2017-07-09] MEDS: tiZANidine HCl 4 MG TAB PO SCH ×4 (01:16→20:00)
[2017-07-09] MEDS: Acetaminophen/Codeine 30-300mg Tablet PO PRN ×6 (01:40→23:11)
[2017-07-09] MEDS: Albuterol Sulfate 2.5 mg/3 ml Neb NEB SCH ×2 (08:33→21:03)
[2017-07-09] MEDS: clonazePAM 0.5 MG TAB PO PRN ×2 (08:34→14:08)
[2017-07-09] MEDS: Furosemide 20 MG TAB PO SCH (08:34)
[2017-07-09] MEDS: Senokot 8.6 MG TAB PO SCH ×2 (08:34→21:04)
[2017-07-09] MEDS: Enoxaparin Sodium 40 MG/0.4 ML SYRINGE SC SCH (08:34)
[2017-07-09] MEDS: Potassium Chloride 10 MEQ TAB PO SCH (08:34)
[2017-07-09] MEDS: Ferrous Sulfate 325 MG TAB PO SCH ×2 (08:34→17:01)
[2017-07-09] MEDS: Polyethylene Glycol 3350 17 GM Packet PO SCH ×2 (08:35→21:04)
[2017-07-09] MEDS: Vancomycin HCl 1 GM in Sodium Chloride 0.9% 250 ML 250 ML IVPB SCH (12:09)
[2017-07-09] MEDS: HumaLOG 300 UNITS/3 ML VIAL SC PRN (12:19)
[2017-07-09] MEDS: Ondansetron ODT 4 MG TAB PO PRN (13:20)
[2017-07-09] MEDS: Bisacodyl 10 MG SUPP PR SCH (21:03)
[2017-07-09] MEDS: Levemir Flexpen 100 UNITS/ML PEN SC SCH (21:04)
[2017-07-10] MEDS: Vancomycin HCl 1 GM in Sodium Chloride 0.9% 250 ML 250 ML IVPB SCH ×2 (00:50→12:06)
[2017-07-10] MEDS: Baclofen 10 MG TAB PO SCH ×5 (02:26→21:13)
[2017-07-10] MEDS: tiZANidine HCl 4 MG TAB PO SCH ×5 (02:27→21:14)
[2017-07-10] MEDS ORDERED: Furosemide 20 MG/2 ML VIAL SLOW IVP SCH (06:45)
[2017-07-10] MEDS ORDERED: Lorazepam 1 MG TAB PO PRN (07:33)
[2017-07-10] MEDS: Acetaminophen/Codeine 30-300mg Tablet PO PRN ×2 (07:41→14:06)
[2017-07-10] MEDS ORDERED: Lorazepam 2 MG/ML VIAL ONE (07:50)
[2017-07-10] MEDS: Enoxaparin Sodium 40 MG/0.4 ML SYRINGE SC SCH (09:01)
[2017-07-10] MEDS: Albuterol Sulfate 2.5 mg/3 ml Neb NEB SCH ×2 (09:01→21:18)
[2017-07-10] MEDS: Senokot 8.6 MG TAB PO SCH ×3 (09:02→21:13)
[2017-07-10] MEDS: Ferrous Sulfate 325 MG TAB PO SCH ×3 (09:02→16:50)
[2017-07-10] MEDS: Potassium Chloride 10 MEQ TAB PO SCH ×2 (09:02→12:27)
[2017-07-10] MEDS: Polyethylene Glycol 3350 17 GM Packet PO SCH ×3 (09:03→21:14)
[2017-07-10 09:49] LABS: BUN (Urea Nitrogen) 10 mg/dL (9.8-20.1); Calc. Creatinine Clearance 133 mL/min (70-130); Carbon Dioxide 33 mmol/L (22-29); Chloride 98 mmol/L (98-107); Estimated GFR-MDRD 81; Glucose 193 mg/dL (70-105); Potassium 4.2 mmol/L (3.5-5.1); Sodium 142 mmol/L (136-145)
[2017-07-10 09:50] LABS: Anion Gap 15 mmol/L (10-20); Calcium 9.5 mg/dL (7.8-10.44)
[2017-07-10] MEDS: Lorazepam 2 MG/ML VIAL SLOW IVP PRN ×2 (11:10→14:58)
[2017-07-10 11:11] LABS: Vancomycin, Trough 21.1 ug/mL
[2017-07-10] MEDS ORDERED: Morphine 4 MG/ML VIAL ONE (11:31)
[2017-07-10] MEDS: Morphine 4 MG/ML VIAL SLOW IVP PRN ×2 (11:35→19:53)
[2017-07-10] MEDS ORDERED: Morphine 4 MG/ML Carpuject SLOW IVP PRN (12:07)
[2017-07-10] MEDS ORDERED: Ondansetron HCl/PF 4 MG/2 ML Vial IVP PRN (19:24)
[2017-07-10] MEDS ORDERED: Ondansetron HCl/PF 4 MG/2 ML Vial IVP SCH (19:30)
[2017-07-10] MEDS: Bisacodyl 10 MG SUPP PR SCH (21:12)
[2017-07-10] MEDS: Levemir Flexpen 100 UNITS/ML PEN SC SCH (21:12)
[2017-07-11] MEDS: Vancomycin HCl 1 GM in Sodium Chloride 0.9% 250 ML 250 ML IVPB SCH ×2 (00:15→11:14)
[2017-07-11] MEDS: Morphine 4 MG/ML VIAL SLOW IVP PRN ×4 (01:38→17:37)
[2017-07-11] MEDS: Baclofen 10 MG TAB PO SCH ×2 (01:59→18:10)
[2017-07-11] MEDS: tiZANidine HCl 4 MG TAB PO SCH ×2 (02:00→18:10)
[2017-07-11] MEDS: Ondansetron HCl/PF 4 MG/2 ML Vial IVP PRN ×2 (02:08→13:27)
[2017-07-11] MEDS: Lorazepam 2 MG/ML VIAL SLOW IVP PRN ×6 (06:38→21:32)
[2017-07-11] MEDS ORDERED: Sodium Chloride 0.65% Nasal 44 ML BOT EA NARE PRN (07:51)
[2017-07-11] MEDS ORDERED: Chloraseptic Spray 180 ml Bottle PO PRN (08:52)
[2017-07-11] MEDS: Albuterol Sulfate 2.5 mg/3 ml Neb NEB SCH ×2 (09:17→23:18)
[2017-07-11] MEDS: Potassium Chloride 10 MEQ TAB PO SCH (11:01)
[2017-07-11] MEDS: Polyethylene Glycol 3350 17 GM Packet PO SCH ×2 (11:03→22:06)
[2017-07-11] MEDS: Fluticasone Propionate Nasal Spray 16 gm Bottle NASAL PRN (12:15)
[2017-07-11 13:47] VITALS: BMI 37.0
[2017-07-11] MEDS ORDERED: Bisacodyl 10 MG SUPP PR PRN (22:04)
[2017-07-11] MEDS: Bisacodyl 10 MG SUPP PR SCH (23:19)
[2017-07-12] MEDS: Morphine 4 MG/ML VIAL SLOW IVP PRN ×7 (01:09→20:47)
[2017-07-12] MEDS: fentaNYL 50 mcg/hour Patch TD SCH (01:20)
[2017-07-12] MEDS: Ondansetron HCl/PF 4 MG/2 ML Vial IVP PRN ×2 (08:36→13:28)
[2017-07-12] MEDS: Lorazepam 2 MG/ML VIAL SLOW IVP PRN ×2 (13:27→17:04)
[2017-07-13] MEDS: Lorazepam 2 MG/ML VIAL SLOW IVP PRN ×7 (00:02→21:18)
[2017-07-13] MEDS: Ondansetron HCl/PF 4 MG/2 ML Vial IVP PRN ×3 (00:02→13:57)
[2017-07-13] MEDS: Morphine 4 MG/ML VIAL SLOW IVP PRN ×3 (03:23→21:18)
[2017-07-13] MEDS: Acetaminophen/Codeine 30-300mg Tablet PO PRN ×2 (06:24→23:42)
[2017-07-13] MEDS: Scopolamine 1.5 mg/72 hour Patch TOP SCH (21:15)
[2017-07-14] MEDS: Morphine 4 MG/ML VIAL SLOW IVP PRN ×4 (00:53→23:21)
[2017-07-14] MEDS: Acetaminophen/Codeine 30-300mg Tablet PO PRN (03:57)
[2017-07-14] MEDS: Lorazepam 2 MG/ML VIAL SLOW IVP PRN ×6 (03:59→22:34)
[2017-07-14] MEDS ORDERED: Artificial Tear Sol 15 ML BOT EA EYE PRN (09:13)
[2017-07-14] MEDS ORDERED: fentaNYL 50 mcg/hour Patch TD SCH (09:15)
[2017-07-14] MEDS ORDERED: Dexamethasone 4 MG TAB PO SCH (09:15)
[2017-07-14] MEDS: Baclofen 10 MG TAB PO PRN ×3 (09:53→22:35)
[2017-07-14] MEDS: fentaNYL 50 mcg/hour Patch TD SCH (09:53)
[2017-07-14] MEDS: tiZANidine HCl 4 MG TAB PO PRN ×3 (09:53→22:34)
[2017-07-14] MEDS: Dexamethasone 4 MG TAB PO SCH ×3 (13:14→20:03)
[2017-07-14] MEDS: Albuterol Sulfate 2.5 mg/3 ml Neb NEB PRN ×2 (13:39→22:36)
[2017-07-14] MEDS ORDERED: Lorazepam 2 MG/ML VIAL ONE ×3 (16:31→22:24)
[2017-07-14] MEDS: Ondansetron HCl/PF 4 MG/2 ML Vial IVP PRN ×2 (16:39→22:34)
[2017-07-14] MEDS ORDERED: Sodium Chloride 0.9% 20 ML ONE (23:20)
[2017-07-15] MEDS ORDERED: Lorazepam 2 MG/ML VIAL ONE ×4 (00:35→15:10)
[2017-07-15] MEDS: Lorazepam 2 MG/ML VIAL SLOW IVP PRN ×4 (00:39→15:20)
[2017-07-15] MEDS: Albuterol Sulfate 2.5 mg/3 ml Neb NEB PRN ×2 (00:55→22:33)
[2017-07-15] MEDS: Acetaminophen/Codeine 30-300mg Tablet PO PRN ×2 (05:14→11:05)
[2017-07-15] MEDS: Baclofen 10 MG TAB PO PRN ×2 (05:14→11:05)
[2017-07-15] MEDS: tiZANidine HCl 4 MG TAB PO PRN ×2 (05:15→11:05)
[2017-07-15] MEDS: Dexamethasone 4 MG TAB PO SCH ×4 (08:52→21:15)
[2017-07-15] MEDS: Morphine 4 MG/ML VIAL SLOW IVP PRN ×2 (15:52→21:17)
[2017-07-15] MEDS: Ziprasidone 20 MG VIAL IM PRN ×2 (16:14→22:33)
[2017-07-16] MEDS: Morphine 4 MG/ML VIAL SLOW IVP PRN ×4 (01:02→21:28)
[2017-07-16] MEDS: Lorazepam 2 MG/ML VIAL SLOW IVP PRN ×4 (05:45→22:45)
--- NOTE | 2017-07-16 08:41 | PRG ---
DATE OF SERVICE: 07/16/2017 SUBJECTIVE: I am seeing the patient for Dr. Kandi López who has asked me to see her in her abs ence. The patient is here for terminal care. 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 She has a history of insulin requiring diabetes, hypertension, and obstructive sleep apnea. She al so has a history of hepatitis C, a distant history of drug abuse from opiates and benzodiazepines and she has chronic hypoxic respiratory failure. She is under terminal care. Lately she has not only t he chronic pain that has been very difficult to control, she has also complains of shortness of breat h and severe agitation and anxiety. Her daughter, Ladi, has been staying with her. She has been tried on several medications. Most recently, as an addition to the morphine IV p.r.n. she has Ativan , recently was placed on fentanyl patch and also on a course of steroids. She has had a risperidone at night and recently has required Geodon some for acute agitation which the daughter said did not he lp much. This morning, she again had an episode where she was very anxious and short of breath and f rightened. PHYSICAL EXAMINATION: On examination, patient appears very anxious. She was placed on her O2 mask a nd seemed to settle down some after this. Her vital signs show that she is usually able to maintain an O2 sat of around 96% on 4 liters. Her temperature has been 98, blood pressure 140/89. Her lung e xam shows diffuse expiratory wheezes and some rhonchi. Heart, regular rate. Neurologic; the patient is very anxious. Her daughter said she has been hallucinating some. ASSESSMENT: 1. Terminal care. A. Pain requiring the fentanyl patch and the morphine for breakthrough pain. B. Complicated by agitation and hallucinations. 2. Chronic osteomyelitis of the thoracic spine. A. The patient has refused any intervention. B. Chronic hypoxic respiratory failure. PLAN: Utilizing neb treatments q.i.d. and every 4 hours as needed. We will stop the risperidone and the Haldol. We will stop the risperidone and the Geodon. We will place patient on Haldol 5 mg IM e very 4 hours as needed, and Haldol 5 mg orally q.6h. We will continue to use Ativan IV as needed and the morphine IV as needed. We will also utilize the morphine 1 mg by nebulizer p.r.n. [facility] dav[facility].
[2017-07-16] MEDS: Haloperidol 1 MG TAB PO SCH ×4 (10:22→20:40)
[2017-07-16] MEDS: Dexamethasone 4 MG TAB PO SCH ×4 (10:22→20:41)
[2017-07-16] MEDS ORDERED: Fluticasone Propionate Nasal Spray 16 gm Bottle NASAL PRN (16:15)
[2017-07-16] MEDS: Haloperidol Lactate 5 MG/ML VIAL IM PRN (19:52)
[2017-07-16] MEDS: Scopolamine 1.5 mg/72 hour Patch TOP SCH (20:43)
[2017-07-16] MEDS: Ondansetron HCl/PF 4 MG/2 ML Vial IVP PRN (23:15)
[2017-07-17] MEDS: Morphine 4 MG/ML VIAL SLOW IVP PRN ×4 (00:53→16:10)
[2017-07-17] MEDS: Haloperidol Lactate 5 MG/ML VIAL IM PRN (01:14)
[2017-07-17] MEDS: Albuterol Sulfate 2.5 mg/3 ml Neb NEB PRN (01:45)
[2017-07-17] MEDS: Lorazepam 2 MG/ML VIAL SLOW IVP PRN ×4 (02:29→16:11)
[2017-07-17] MEDS: Dexamethasone 4 MG TAB PO SCH ×4 (09:06→20:19)
[2017-07-17] MEDS: Haloperidol 1 MG TAB PO SCH ×4 (09:06→20:19)
[2017-07-17] MEDS: clonazePAM 0.5 MG TAB PO SCH ×3 (09:09→20:19)
[2017-07-17] MEDS: fentaNYL 50 mcg/hour Patch TD SCH (09:10)
[2017-07-17] MEDS: Morphine 10 MG/0.5 ML ORAL SYRINGE NEB PRN (11:20)
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
[2017-07-18] MEDS: Morphine 4 MG/ML VIAL SLOW IVP PRN (00:23)
[2017-07-18] MEDS: Lorazepam 2 MG/ML VIAL SLOW IVP PRN ×3 (04:35→13:44)
[2017-07-18] MEDS: Haloperidol 1 MG TAB PO SCH (07:18)
[2017-07-18] MEDS: Dexamethasone 4 MG TAB PO SCH ×4 (07:18→20:12)
[2017-07-18] MEDS: Baclofen 10 MG TAB PO PRN (07:18)
[2017-07-18] MEDS: clonazePAM 0.5 MG TAB PO SCH ×3 (07:32→22:06)
[2017-07-18] MEDS: Morphine 10 MG/0.5 ML ORAL SYRINGE NEB PRN ×2 (11:41→18:13)
[2017-07-18] MEDS: Haloperidol 5 MG TAB PO SCH ×3 (13:10→20:49)
[2017-07-18] MEDS: Haloperidol Lactate 5 MG/ML VIAL IM PRN (15:55)
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
[2017-07-18] MEDS: Bisacodyl 10 MG SUPP PR SCH (20:11)
[2017-07-18] MEDS: Ondansetron HCl/PF 4 MG/2 ML Vial IVP PRN (20:51)
[2017-07-19] MEDS: Sterile Water 10 ML VIAL FS PRN ×2 (01:59→19:26)
[2017-07-19] MEDS: Baclofen 10 MG TAB PO PRN ×2 (01:59→21:02)
[2017-07-19] MEDS: Morphine 10 MG/0.5 ML ORAL SYRINGE NEB PRN ×3 (02:00→19:27)
[2017-07-19] MEDS: Haloperidol Lactate 5 MG/ML VIAL IM PRN ×2 (04:55→22:16)
[2017-07-19] MEDS: clonazePAM 0.5 MG TAB PO SCH ×2 (05:34→21:01)
[2017-07-19] MEDS: Haloperidol 5 MG TAB PO SCH ×4 (08:26→21:04)
[2017-07-19] MEDS: Dexamethasone 4 MG TAB PO SCH ×4 (08:26→21:03)
[2017-07-19] MEDS: Lorazepam 2 MG/ML VIAL SLOW IVP PRN (10:58)
[2017-07-19] MEDS: Morphine 4 MG/ML VIAL SLOW IVP PRN (10:58)
[2017-07-19] MEDS ORDERED: clonazePAM 0.5 MG TAB PO SCH ×2 (14:00→15:15)
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
[2017-07-19] MEDS: Scopolamine 1.5 mg/72 hour Patch TOP SCH (19:29)
[2017-07-19] MEDS: Bisacodyl 10 MG SUPP PR SCH (21:04)
[2017-07-20] MEDS: Morphine 10 MG/0.5 ML ORAL SYRINGE NEB PRN ×3 (00:32→16:42)
[2017-07-20] MEDS: Acetaminophen/Codeine 30-300mg Tablet PO PRN (02:30)
[2017-07-20] MEDS: Lorazepam 2 MG/ML VIAL SLOW IVP PRN (03:28)
[2017-07-20] MEDS: clonazePAM 0.5 MG TAB PO SCH ×3 (05:49→22:22)
[2017-07-20] MEDS: Sterile Water 10 ML VIAL FS PRN (06:02)
[2017-07-20] MEDS: Dexamethasone 4 MG TAB PO SCH ×4 (09:27→20:47)
[2017-07-20] MEDS: Haloperidol 5 MG TAB PO SCH ×4 (09:27→20:47)
[2017-07-20] MEDS: fentaNYL 50 mcg/hour Patch TD SCH (09:29)
[2017-07-20] MEDS: Morphine 4 MG/ML VIAL SLOW IVP PRN ×2 (12:37→22:22)
[2017-07-20] MEDS: Haloperidol Lactate 5 MG/ML VIAL IM PRN (14:49)
[2017-07-20] MEDS: Bisacodyl 10 MG SUPP PR SCH (20:49)
[2017-07-21] MEDS: Morphine 4 MG/ML VIAL SLOW IVP PRN ×2 (02:46→08:27)
[2017-07-21] MEDS: Ondansetron HCl/PF 4 MG/2 ML Vial IVP PRN (03:15)
[2017-07-21] MEDS: clonazePAM 0.5 MG TAB PO SCH ×3 (06:12→22:12)
[2017-07-21] MEDS: Haloperidol 5 MG TAB PO SCH ×4 (08:25→20:06)
[2017-07-21] MEDS: Dexamethasone 4 MG TAB PO SCH ×4 (08:25→20:05)
[2017-07-21] MEDS: Lorazepam 2 MG/ML VIAL SLOW IVP PRN ×2 (08:28→20:07)
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
[2017-07-21] MEDS: Baclofen 10 MG TAB PO PRN (20:05)
[2017-07-21] MEDS: Acetaminophen/Codeine 30-300mg Tablet PO PRN (20:06)
[2017-07-21] MEDS: Bisacodyl 10 MG SUPP PR SCH (20:06)
[2017-07-22] MEDS: Lorazepam 2 MG/ML VIAL SLOW IVP PRN ×3 (00:55→16:02)
[2017-07-22] MEDS: clonazePAM 0.5 MG TAB PO SCH ×3 (05:34→22:02)
[2017-07-22] MEDS: Morphine 10 MG/0.5 ML ORAL SYRINGE NEB PRN (07:03)
[2017-07-22] MEDS: Dexamethasone 4 MG TAB PO SCH ×4 (08:38→22:02)
[2017-07-22] MEDS: Haloperidol 5 MG TAB PO SCH ×4 (08:38→22:03)
[2017-07-22] MEDS: Baclofen 10 MG TAB PO PRN ×2 (08:38→16:03)
[2017-07-22] MEDS: Acetaminophen/Codeine 30-300mg Tablet PO PRN ×2 (10:58→17:26)
[2017-07-22] MEDS: Ondansetron HCl/PF 4 MG/2 ML Vial IVP PRN (18:25)
[2017-07-22] MEDS ORDERED: diphenhydrAMINE 25 MG CAP ONE (20:32)
[2017-07-22] MEDS: Scopolamine 1.5 mg/72 hour Patch TOP SCH (22:11)
[2017-07-22] MEDS: Bisacodyl 10 MG SUPP PR SCH (22:13)
[2017-07-22] MEDS: diphenhydrAMINE 25 MG CAP PO PRN (22:15)
[2017-07-23] MEDS: Baclofen 10 MG TAB PO PRN (03:38)
[2017-07-23] MEDS: Acetaminophen/Codeine 30-300mg Tablet PO PRN (03:38)
[2017-07-23] MEDS: clonazePAM 0.5 MG TAB PO SCH ×3 (05:22→22:14)
[2017-07-23] MEDS: Albuterol Sulfate 2.5 mg/3 ml Neb NEB PRN (05:23)
[2017-07-23] MEDS: Haloperidol 5 MG TAB PO SCH ×4 (09:15→22:15)
[2017-07-23] MEDS: Dexamethasone 4 MG TAB PO SCH ×4 (09:15→22:15)
[2017-07-23] MEDS: fentaNYL 50 mcg/hour Patch TD SCH (09:32)
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
[2017-07-23] MEDS: diphenhydrAMINE 25 MG CAP PO PRN ×2 (17:37→23:14)
[2017-07-23] MEDS: Ondansetron HCl/PF 4 MG/2 ML Vial IVP PRN (19:58)
[2017-07-23] MEDS: Bisacodyl 10 MG SUPP PR SCH (22:14)
[2017-07-24] MEDS: clonazePAM 0.5 MG TAB PO SCH ×3 (04:25→21:42)
[2017-07-24] MEDS: Dexamethasone 4 MG TAB PO SCH ×4 (09:00→21:40)
[2017-07-24] MEDS: Haloperidol 5 MG TAB PO SCH ×4 (10:02→21:41)
[2017-07-24] MEDS: diphenhydrAMINE 25 MG CAP PO PRN ×2 (11:47→21:43)
[2017-07-24] MEDS: Bisacodyl 10 MG SUPP PR SCH (21:40)
[2017-07-25] MEDS: Acetaminophen/Codeine 30-300mg Tablet PO PRN (03:20)
[2017-07-25] MEDS: clonazePAM 0.5 MG TAB PO SCH ×3 (06:35→21:24)
[2017-07-25] MEDS: Dexamethasone 4 MG TAB PO SCH ×4 (08:26→21:33)
[2017-07-25] MEDS: Haloperidol 5 MG TAB PO SCH ×4 (08:26→21:33)
[2017-07-25] MEDS: diphenhydrAMINE 25 MG CAP PO PRN ×3 (11:03→23:12)
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
[2017-07-25] MEDS: Ondansetron HCl/PF 4 MG/2 ML Vial IVP PRN ×2 (15:01→21:25)
[2017-07-25] MEDS ORDERED: Artificial Tear Sol 15 ML BOT EA EYE PRN (18:00)
[2017-07-25] MEDS ORDERED: Baclofen 10 MG TAB PO PRN (18:00)
[2017-07-25] MEDS ORDERED: HumaLOG 300 UNITS/3 ML VIAL SC PRN ×2 (20:37→21:13)
[2017-07-25] MEDS ORDERED: Dextrose 5% in Water 1,000 ML IV PRN (20:37)
[2017-07-25] MEDS ORDERED: Dextrose 50% Abboject 50 ML SYRINGE IVP PRN (20:38)
[2017-07-25] MEDS: Scopolamine 1.5 mg/72 hour Patch TOP SCH (21:32)
[2017-07-25] MEDS: Bisacodyl 10 MG SUPP PR SCH (21:33)
[2017-07-25] MEDS: Lorazepam 2 MG/ML VIAL SLOW IVP PRN (23:12)
[2017-07-26] MEDS: Ondansetron HCl/PF 4 MG/2 ML Vial IVP PRN ×5 (02:15→21:14)
[2017-07-26] MEDS: clonazePAM 0.5 MG TAB PO SCH ×3 (05:26→21:14)
[2017-07-26] MEDS: Dexamethasone 4 MG TAB PO SCH ×2 (09:09→21:13)
[2017-07-26] MEDS: Haloperidol 5 MG TAB PO SCH ×4 (09:09→21:13)
[2017-07-26] MEDS: diphenhydrAMINE 25 MG CAP PO PRN (09:15)
[2017-07-26] MEDS ORDERED: Dextrose 50% Abboject 50 ML SYRINGE SLOW IVP PRN (11:06)
[2017-07-26] MEDS ORDERED: Dextrose 5% in Water 1,000 ML IV PRN (11:06)
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
[2017-07-26] MEDS: Insulin Regular 300 UNITS/3 ML VIAL SC PRN ×2 (12:08→18:34)
[2017-07-26] MEDS: Lorazepam 2 MG/ML VIAL SLOW IVP PRN ×2 (12:46→20:05)
[2017-07-26] MEDS ORDERED: fentaNYL 50 mcg/hour Patch TD SCH (16:00)
[2017-07-26] MEDS: Bisacodyl 10 MG SUPP PR SCH (21:12)
[2017-07-26] MEDS: Morphine 10 MG/0.5 ML ORAL SYRINGE SL PRN (22:34)
[2017-07-27] MEDS: Insulin Regular 300 UNITS/3 ML VIAL SC PRN ×4 (00:14→18:26)
[2017-07-27] MEDS: Lorazepam 2 MG/ML VIAL SLOW IVP PRN ×4 (01:30→18:36)
[2017-07-27] MEDS: diphenhydrAMINE 25 MG CAP PO PRN (01:30)
[2017-07-27] MEDS: clonazePAM 0.5 MG TAB PO SCH ×3 (06:00→21:53)
[2017-07-27] MEDS: Haloperidol 5 MG TAB PO SCH ×4 (08:46→21:53)
[2017-07-27] MEDS: Dexamethasone 4 MG TAB PO SCH (08:46)
[2017-07-27] MEDS: Levemir Flexpen 100 UNITS/ML PEN SC SCH (08:47)
[2017-07-27] MEDS: Morphine 10 MG/0.5 ML ORAL SYRINGE SL PRN (14:04)
[2017-07-27] MEDS: Ondansetron HCl/PF 4 MG/2 ML Vial IVP PRN (15:52)
[2017-07-27] MEDS: Bisacodyl 10 MG SUPP PR SCH (21:53)
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
[2017-07-28] MEDS: Morphine 10 MG/0.5 ML ORAL SYRINGE SL PRN ×3 (00:29→08:27)
[2017-07-28] MEDS: Insulin Regular 300 UNITS/3 ML VIAL SC PRN ×2 (00:30→05:40)
[2017-07-28] MEDS: Ondansetron HCl/PF 4 MG/2 ML Vial IVP PRN ×3 (00:30→12:54)
[2017-07-28] MEDS: Lorazepam 2 MG/ML VIAL SLOW IVP PRN ×4 (00:50→15:07)
[2017-07-28] MEDS: clonazePAM 0.5 MG TAB PO SCH ×2 (05:16→13:36)
[2017-07-28] MEDS: Levemir Flexpen 100 UNITS/ML PEN SC SCH (08:29)
[2017-07-28] MEDS: Haloperidol 5 MG TAB PO SCH ×3 (08:29→18:29)
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
[2017-07-28] MEDS ORDERED: Promethazine HCl 25 MG/ML VIAL SLOW IVP PRN (15:12)
[2017-07-28] MEDS ORDERED: Lorazepam 2 MG/ML VIAL SLOW IVP PRN (15:13)
[2017-07-28 20:21] VITALS: BP 117/56; TEMP 101.3
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
== END 2017-07-28 20:30 | disposition expired | DRG 539 ==
LOC: MADMS 18:21
PROVIDERS: ADMIT Family Medicine; ATTEND Family Medicine
DX: M46.24 Osteomyelitis of vertebra, thoracic region (principal); G06.1 Intraspinal abscess and granuloma; J96.21 Acute and chronic respiratory failure with hypoxia; A41.9 Sepsis, unspecified organism; E11.10 Type 2 diabetes mellitus with ketoacidosis without coma; G82.20 Paraplegia, unspecified; N39.0 Urinary tract infection, site not specified; N31.9 Neuromuscular dysfunction of bladder, unspecified; S24.104S Unspecified injury at T11-T12 level of thoracic spinal cord, sequela; J39.8 Other specified diseases of upper respiratory tract; Z66 Do not resuscitate; Z51.5 Encounter for palliative care; B95.62 Methicillin resistant Staphylococcus aureus infection as the cause of diseases classified elsewhere; Z74.01 Bed confinement status; I10 Essential (primary) hypertension; G89.4 Chronic pain syndrome; F31.9 Bipolar disorder, unspecified; K21.9 Gastro-esophageal reflux disease without esophagitis; V89.2XXS Person injured in unspecified motor-vehicle accident, traffic, sequela; M46.44 Discitis, unspecified, thoracic region; S22.089S Unspecified fracture of T11-T12 vertebra, sequela; Z79.4 Long term (current) use of insulin; F41.9 Anxiety disorder, unspecified; G47.33 Obstructive sleep apnea (adult) (pediatric); B96.1 Klebsiella pneumoniae [K. pneumoniae] as the cause of diseases classified elsewhere; E78.5 Hyperlipidemia, unspecified; Z86.19 Personal history of other infectious and parasitic diseases
CPT/HCPCS: 36415; 36416; 80048; 80202; 85025; 86140; 94640; A4216; C1751; J1630; J1642; J1650; J1815; J1940; J2060; J2270; J2405; J2550; J3370; J3486; J7050; J7611; J7620; J8540; Q0162

== ENCOUNTER 2017-07-10 02:56 | Emergency (ER) | payer MEDICARE, MEDICAID ==
[2017-07-10] MEDS ORDERED: Lorazepam 2 MG/ML VIAL ONE (03:21)
[2017-07-10] MEDS ORDERED: Morphine 4 MG/ML VIAL ONE (04:06)
== END 2017-07-10 04:35 | disposition critical access hospital (66) ==
LOC: MADERS 02:56
DX: J96.90 Respiratory failure, unspecified, unspecified whether with hypoxia or hypercapnia (principal); E11.9 Type 2 diabetes mellitus without complications; E78.5 Hyperlipidemia, unspecified; F31.9 Bipolar disorder, unspecified; F41.9 Anxiety disorder, unspecified; I10 Essential (primary) hypertension; J44.9 Chronic obstructive pulmonary disease, unspecified; K21.9 Gastro-esophageal reflux disease without esophagitis; M19.90 Unspecified osteoarthritis, unspecified site; Z87.891 Personal history of nicotine dependence
CPT/HCPCS: 96374; 96375; J2060; J2270